=== PATIENT | female | born 1985 | race Caucasian/White ===

== ENCOUNTER → 2017-03-15 | Outpatient (CLI) | payer OTHER ==
[~2017-03-15] MED LIST: CEPHALEXIN500 M1 PO; IBU600 MG PO; MACROBID 1100 MG/CAP PO; PRENATAL1 TA7 PO; TYLENOL 500MG500 MG PO; WELLBUTRIN XL150 MG PO; XANAX .25M0.25 MG/TA PO
== END ==
LOC: SUN.DIA 06-07 17:28
DX: E11.9 Type 2 diabetes mellitus without complications (principal); Z68.30 Body mass index [BMI] 30.0-30.9, adult; Z71.3 Dietary counseling and surveillance
CPT/HCPCS: G0108

== ENCOUNTER → 2017-04-03 | Outpatient (CLI) | payer OTHER | LOC: SUN.DIA 08:42 | DX: E11.65 Type 2 diabetes mellitus with hyperglycemia (principal); Z68.30 Body mass index [BMI] 30.0-30.9, adult; Z71.3 Dietary counseling and surveillance | CPT/HCPCS: G0108 ==